=== PATIENT | female | born 2000 | race Two or more races ===

== ENCOUNTER 2020-01-17 07:16 | Emergency (ER) | payer OTHER, BC ==
[2020-01-17 07:54] LABS: ABSOLUTE BASOPHILS # (AUTO) 0.1 10^3/uL (0.0-0.2); ABSOLUTE EOSINOPHILS # (AUTO) 0.1 10^3/uL (0.0-0.6); ABSOLUTE LYMPHOCYTES (AUTO) 2.2 10^3/uL (0.5-4.7); ABSOLUTE MONOCYTES (AUTO) 1.1 10^3/uL (0.1-1.4); ABSOLUTE NEUT (AUTO) 12.5 10^3/uL (1.7-8.2); BASOPHILS % (AUTO) 0.5 % (0-2); EOSINOPHILS % (AUTO) 0.5 % (0-6); HEMATOCRIT 45.2 % (36.0-47.0); HEMOGLOBIN 15.5 g/dL (12.0-15.5); LYMPHOCYTES % (AUTO) 13.9 % (13-45); MEAN CORPUSCULAR HEMOGLOBIN 31.4 pg (27.0-33.4); MEAN CORPUSCULAR HGB CONC 34.2 g/dL (32.0-36.0); MEAN CORPUSCULAR VOLUME 92 fl (80-97); MONOCYTES % (AUTO) 6.8 % (3-13); PLATELET COUNT 231 10^3/uL (150-450); RED BLOOD COUNT 4.93 10^6/uL (3.72-5.28); RED CELL DISTRIBUTION WIDTH 14.1 % (11.5-14.0); SEGMENTED NEUTROPHILS % (AUTO) 78.3 % (42-78); TOTAL CELLS COUNTED % (AUTO) 100 %
[2020-01-17 08:09] LABS: ALBUMIN 4.3 g/dL (3.7-5.6); ALKALINE PHOSPHATASE 80 U/L (50-135); ANION GAP 9 (5-19); ASPARTATE AMINO TRANSFERASE 28 U/L (5-30); BILIRUBIN,TOTAL 1.1 mg/dL (0.2-1.3); BLOOD UREA NITROGEN 13 mg/dL (7-20); CALCIUM 9.6 mg/dL (8.4-10.2); CARBON DIOXIDE 25 mmol/L (22-30); CHLORIDE 105 mmol/L (98-107); GLUCOSE 89 mg/dL (75-110); TOTAL PROTEIN 7.2 g/dL (6.3-8.2)
[2020-01-17 08:17] LABS: APPEARANCE,URINE CLOUDY; BILIRUBIN,URINE NEGATIVE (NEGATIVE); GLUCOSE, URINE NEGATIVE (NEGATIVE); KETONES,URINE 80 mg/dL (NEGATIVE); LEUKOCYTE ESTERASE,URINE NEGATIVE (NEGATIVE); NITRITE,URINE NEGATIVE (NEGATIVE); PROTEIN,URINE 100 mg/dL (NEGATIVE); URINE SPECIFIC GRAVITY 1.031; UROBILINOGEN,URINE NEGATIVE mg/dL (<2.0)
[2020-01-17 08:28] LABS: COLOR,URINE YELLOW
--- NOTE | 2020-01-17 09:43 | ER Document Report ---
ED General - General Chief Complaint: Abdominal Pain Stated Complaint: ABDOMINAL PAIN Time Seen by Provider: 01/17/20 08:27 Mode of Arrival: Ambulatory Information source: Patient Notes: 19-year-old female presents emergency department with complaints of lower abdominal pain left lower quad pain since last night. Reports she has vomited twice. Denies fever diarrhea. She denies trauma. Denies pain with void. Denies vaginal discharge denies vaginal bleeding. Reports last menstrual was last week and ended on January 13. She reports the pain started last night was very sharp and constant. Her had to carry her to bed. She reports she took 2 ibuprofen without relief of symptoms. She reports she is G1, P0. TRAVEL OUTSIDE OF THE [place] IN LAST 30 DAYS: No - HPI Onset: Yesterday Onset/Duration: Sudden Quality of pain: Sharp Associated symptoms: Vomiting Exacerbated by: Denies Relieved by: Denies Similar symptoms previously: No Recently seen / treated by doctor: No - Related Data Allergies/Adverse Reactions: No Known Drug Allergies Allergy (Verified 01/17/20 07:28) bees Allergy (Uncoded 01/17/20 07:28) Anaphylaxis Past Medical History - General Information source: Patient Last Menstrual Period: jan 11, 2020 - Social History Smoking Status: Never Smoker Chew tobacco use (# tins/day): No Frequency of alcohol use: None Drug Abuse: None Lives with: Family Family History: None Patient has suicidal ideation: No Patient has homicidal ideation: No - Medical History Medical History: Negative Surgical Hx: Negative Review of Systems - Review of Systems Notes: Review HPI for review of systems., All other systems negative Physical Exam - Vital signs Vitals: Temp Pulse Resp BP Pulse Ox 98.2 F 62 16 127/78 H 100 01/17/20 07:19 01/17/20 07:19 01/17/20 07:19 01/17/20 07:19 01/17/20 07:19 - General General appearance: Appears well, Alert, Anxious In distress: None - HEENT Head: Normocephalic, Atraumatic Eyes: Normal Conjunctiva: Normal Extraocular movements intact: Yes Pupils: PERRL Ears: Normal External canal: Normal Tympanic membrane: Normal Nasal: Normal Mucous membranes: Normal, Moist Pharynx: Normal Neck: Normal, Supple. No: Lymphadenopathy - Respiratory Respiratory status: No respiratory distress Chest status: Nontender Breath sounds: Normal Chest palpation: Normal - Cardiovascular Rhythm: Regular Heart sounds: Normal auscultation Murmur: No - Abdominal Inspection: Normal Distension: No distension Bowel sounds: Normal Tenderness: Tender - Low abdomen left lower quad Organomegaly: No organomegaly - Back Back: Normal, Nontender - Extremities General upper extremity: Normal ROM General lower extremity: Normal ROM - Neurological Neuro grossly intact: Yes Cognition: Normal Orientation: AAOx4 [place] Coma Scale Eye Opening: Spontaneous [place]ali Coma Scale Verbal: Oriented [place] Coma Scale Motor: Obeys Commands Kali Coma Scale Total: 15 Speech: Normal - Psychological Associated symptoms: Normal affect, Normal mood - Skin Skin Temperature: Warm Skin Moisture: Dry Skin Color: Normal Course - Re-evaluation Re-evalutation: 01/17/20 12:53 Patient reports she is feeling much better. She is drinking p.o. fluids eating crackers. WBC 16 no shift, 6 specific gravity 1032 with ketones. Patient is d rinking p.o. fluids was instructed on the importance of pushing her fluids. Obstetrics Ultrasound 01/17/20 08:49 IMPRESSION: There is no intrauterine gestation identifiable at this time. Follow-up as clinically indicated. There is a large amount of free fluid. Laboratory 01/17/20 01/17/20 01/17/20 07:40 07:40 07:40 WBC 16.0 H RBC 4.93 Hgb 15.5 Hct 45.2 MCV 92 MCH 31.4 MCHC 34.2 RDW 14.1 H Plt Count 231 Lymph % (Auto) 13.9 [place] % (Auto) 6.8 Eos % (Auto) 0.5 Baso % (Auto) 0.5 Absolute Neuts (auto) 12.5 H Absolute Lymphs (auto) 2.2 Absolute Monos (auto) 1.1 Absolute Eos (auto) 0.1 Absolute Basos (auto) 0.1 Seg Neutrophils % 78.3 H Sodium 139.1 Potassium 4.0 Chloride 105 Carbon Dioxide 25 Anion Gap 9 BUN 13 Creatinine 0.60 Est GFR ( Amer) > 60 Est GFR (MDRD) Non-Af > 60 Glucose 89 Calcium 9.6 Total Bilirubin 1.1 Direct Bilirubin 0.0 Neonat Total Bilirubin Not Reportable Neonat Direct Bilirubin Not Reportable Neonat Indirect Bili Not Reportable AST 28 ALT 16 Alkaline Phosphatase 80 Total Protein 7.2 Albumin 4.3 Lipase 25.2 Beta HCG, Quant 18.03 H Total Beta HCG POSITIVE Urine Color Urine Appearance Urine pH Ur Specific Ranger Urine Protein Urine Glucose (UA) Urine Ketones Urine Blood Urine Nitrite Urine Bilirubin Urine Urobilinogen Ur Leukocyte Esterase Urine WBC (Auto) Urine RBC (Auto) Urine Bacteria (Auto) Squamous Epi Cells Auto U Non-Squamous Epis Auto Urine Mucus (Auto) Urine Ascorbic Acid Urine HCG, Qual 01/17/20 08:00 WBC RBC Hgb Hct MCV MCH MCHC RDW Plt Count Lymph % (Auto) [place] % (Auto) Eos % (Auto) Baso % (Auto) Absolute Neuts (auto) Absolute Lymphs (auto) Absolute Monos (auto) Absolute Eos (auto) Absolute Basos (auto) Seg Neutrophils % Sodium Potassium Chloride Carbon Dioxide Anion Gap BUN Creatinine Est GFR ( Amer) Est GFR (MDRD) Non-Af Glucose Calcium Total Bilirubin Direct Bilirubin Neonat Total Bilirubin Neonat Direct Bilirubin Neonat Indirect Bili AST ALT Alkaline Phosphatase Total Protein Albumin Lipase Beta HCG, Quant Total Beta HCG Urine Color YELLOW Urine Appearance CLOUDY Urine pH 5.0 Ur Specific Ranger 1.031 Urine Protein 100 H Urine Glucose (UA) NEGATIVE Urine Ketones 80 H Urine Blood NEGATIVE Urine Nitrite NEGATIVE Urine Bilirubin NEGATIVE Urine Urobilinogen NEGATIVE Ur Leukocyte Esterase NEGATIVE Urine WBC (Auto) 19 Urine RBC (Auto) 1 Urine Bacteria (Auto) TRACE Squamous Epi Cells Auto 53 U Non-Squamous Epis Auto 1 Urine Mucus (Auto) MANY Urine Ascorbic Acid NEGATIVE Urine HCG, Qual POSITIVE H 01/17/20 14:[address] Jordan regarding free fluid patient's complaint. He agrees on pelvic if negative discharge patient with follow-up. Pelvic completed. Unremarkable no BV no trichomonas. Still awaiting STD results. Patient was instructed on all labs instructed to monitor symptoms. She was instructed to follow up for hCG on Friday. She was also instructed on the importance of follow-up with a [employer]ATOR [employer], primary care provider or the health department within 1 week. She was instructed to return immediately to the emergency department for severe abdominal pain vaginal bleeding. 01/17/20 17:40 STD negative - Vital Signs Vital signs: Temp Pulse Resp BP Pulse Ox 97.9 F 62 15 102/59 L 100 01/17/20 14:22 01/17/20 14:22 01/17/20 14:22 01/17/20 14:22 01/17/20 14:22 - Laboratory Result Diagrams: 01/17/20 07:40 01/17/20 07:40 Laboratory results interpreted by me: 01/17/20 01/17/20 01/17/20 07:40 07:40 08:00 WBC 16.0 H RDW 14.1 H Absolute Neuts (auto) 12.5 H Seg Neutrophils % 78.3 H Beta HCG, Quant 18.03 H Urine Protein 100 H Urine Ketones 80 H Urine HCG, Qual POSITIVE H - Diagnostic Test Radiology reviewed: Image reviewed, Reports reviewed Discharge - Discharge Clinical Impression: Abdominal pain Qualifiers: Abdominal location: left lower quadrant Qualified Code(s): R10.32 - Left lower quadrant pain Qualifiers: Weeks of gestation: less than 8 weeks Qualified Code(s): Z3A.01 - Less than 8 weeks gestation of Condition: Stable Disposition: HOME, SELF-CARE Instructions: Abdominal Pain ([facility]), Acetaminophen, Ectopic Precaution ([facility]), Ob-Sanitary Chemist Doctors, [facility], ([facility]) Additional Instructions: *You have been evaluated for abdominal pain, *Your ultrasound was inconclusive. No was visualized. Your hCG level was 18.06. You will need to repeat your hCG in 2 days on Friday, January 19. You may call the [facility] nurse at [phone] for your results 2 hours after the test. *Take Tylenol as indicated *Follow up with a primary care provider /[facility]/or the health department within 1 week for recheck *Return to ED for worsening condition, changes, needs, severe abdominal pain, vaginal bleeding, concerns Forms: Follow-Up Laboratory Testing
--- NOTE | 2020-01-17 12:32 | RADIOLOGY REPORT (SQ) ---
EXAM DESCRIPTION: U/S OB TRANSVAGINAL W/O DOP COMPLETED DATE/TIME: 01/17/2020 11:42 am REASON FOR STUDY: abd pain, +preg, ? ovarian cyst COMPARISON: None. TECHNIQUE: Transvaginal static and realtime grayscale images acquired of the pelvis. Additional pooja cted spectral and color Doppler images recorded. All images stored on PACs. [facility] CLINICAL DATES: LMP 07/23/2020 1 weeks 2 days LIMITATIONS: None. FINDINGS: There is no identifiable gestational sac or pole within the uterus. UTERUS: No masses. No anomalies. CERVICAL LENGTH: 3.7 cm. Closed. RIGHT ADNEXA: Normal ovary with normal vascular flow. 3 x 1.7 x 1.9 cm. Multiple follicles No adnexal free fluid. No adnexal masses. LEFT ADNEXA: Normal ovary with normal vascular flow. 4.1 x 3.4 x 2.8 cm. There is a 3.5 x 2.5 x 2.3 cm cyst. No adnexal free fluid. No adnexal masses. FREE FLUID: There is considerable free fluid. OTHER: No other significant finding. IMPRESSION: There is no intrauterine gestation identifiable at this time. Follow-up as clinically i ndicated. There is a large amount of free fluid. TECHNICAL DOCUMENTATION: JOB ID: [id number] [employer]- All Rights Reserved rev-04/17 Reading location - IP/workstation name: [email or web address]
[2020-01-17 13:16] LABS: T.VAGINALIS (WET MOUNT) NO TRICHOMONAS SEEN; WBCS (WET MOUNT) RARE WBCS SEEN; YEAST (WET MOUNT) NO YEAST SEEN
[2020-01-17 14:24] VITALS: BP 102/59
[2020-01-17 14:48] LABS: CHLAM PCR NOT DETECTED (NOT DETECT)
== END 2020-01-17 14:24 | disposition home or self-care (01) ==
LOC: ER 07:16
DX: O26.891 Other specified pregnancy related conditions, first trimester (principal); R10.32 Left lower quadrant pain; R10.814 Left lower quadrant abdominal tenderness; R18.8 Other ascites; O21.9 Vomiting of pregnancy, unspecified; Z3A.01 Less than 8 weeks gestation of pregnancy; Z87.892 Personal history of anaphylaxis; Z91.030 Bee allergy status
CPT/HCPCS: 36415; 76817; 80053; 81001; 81025; 83690; 84702; 85025; 87070; 87205; 87210; 87491; 87591; 99284

== ENCOUNTER 2020-04-30 10:14 | Emergency (ER) | payer BC, OTHER ==
[2020-04-30 11:04] LABS: ABSOLUTE EOSINOPHILS # (AUTO) 0.1 10^3/uL (0.0-0.6); ABSOLUTE LYMPHOCYTES (AUTO) 1.8 10^3/uL (0.5-4.7); ABSOLUTE MONOCYTES (AUTO) 0.7 10^3/uL (0.1-1.4); ABSOLUTE NEUT (AUTO) 7.1 10^3/uL (1.7-8.2); BASOPHILS % (AUTO) 0.2 % (0-2); EOSINOPHILS % (AUTO) 0.6 % (0-6); HEMATOCRIT 38.8 % (36.0-47.0); HEMOGLOBIN 13.6 g/dL (12.0-15.5); LYMPHOCYTES % (AUTO) 18.8 % (13-45); MEAN CORPUSCULAR HEMOGLOBIN 31.9 pg (27.0-33.4); MEAN CORPUSCULAR VOLUME 91 fl (80-97); MONOCYTES % (AUTO) 6.8 % (3-13); PLATELET COUNT 198 10^3/uL (150-450); RED BLOOD COUNT 4.27 10^6/uL (3.72-5.28); RED CELL DISTRIBUTION WIDTH 12.7 % (11.5-14.0); SEGMENTED NEUTROPHILS % (AUTO) 73.6 % (42-78); TOTAL CELLS COUNTED % (AUTO) 100 %; WHITE BLOOD COUNT 9.6 10^3/uL (4.0-10.5)
--- NOTE | 2020-04-30 11:05 | ER Document Report ---
ED General - General Chief Complaint: Overdose Stated Complaint: POSSIBLE OVERDOSE Time Seen by Provider: 04/30/20 10:19 Primary Care Provider: LYNNETTE PEREZ MD [Primary Care Provider] - Follow up as needed Information source: Patient Notes: HPI: 19-year-old female with past medical history of depression who states that around 9 AM she took an unknown amount of ibuprofen and Benadryl. Patient states she has a history of depression with institutionalization around 4 years ago. She denies any auditory visual loose [place]. She denies any acute events causing this reaction. She is 16 weeks with her second . Last was terminated with . She denies any abdominal pain or vaginal bleeding. ROS: See HPI All other review of systems reviewed and otherwise negative Reviewed vital signs and nursing note as charted by RN. PHYSICAL EXAM: CONSTITUTIONAL: Alert and oriented and responds appropriately to questions. Well-appearing; well-nourished HEAD: Normocephalic; atraumatic EYES: PERRL; nystagmus, sclerae non-icteric ENT: Normal nose; no rhinorrhea; moist mucous membranes; pharynx without lesions noted NECK: Supple without meningismus; non-tender; no cervical lymphadenopathy, no masses CARD: Regular rate and rhythm; no murmurs; symmetric distal pulses RESP: Normal chest excursion without splinting or tachypnea; breath sounds clear and equal bilaterally ABD/GI: Normal bowel sounds; non-distended with no palpable fundus appreciated with a slightly elevated BMI; soft, non-tender; no palpable organomegaly or masses BACK: The back appears normal and is non-tender to palpation EXT: Normal ROM in all joints; non-tender to palpation; no edema SKIN: No acute lesions noted NEURO: CN 2-12 intact; 5/5 bilateral upper and lower extremity strength with sensation intact to light touch PSYCH: The patient's mood and manner are appropriate. Grooming and personal hygiene are appropriate. TRAVEL OUTSIDE OF THE [place] IN LAST 30 DAYS: No - Related Data Allergies/Adverse Reactions: No Known Drug Allergies Allergy (Verified 04/30/20 10:21) bees Allergy (Uncoded 04/30/20 10:21) Anaphylaxis Home Medications: vitamins. Claritin Past Medical History - Social History Smoking Status: Never Smoker Chew tobacco use (# tins/day): No Frequency of alcohol use: Social Drug Abuse: Marijuana Family History: None Patient has homicidal ideation: No Physical Exam - Vital signs Vitals: Temp Resp BP 98.7 F 18 106/67 04/30/20 10:20 04/30/20 10:20 04/30/20 10:20 Course - Re-evaluation Re-evalutation: 04/30/20 11:04 Given the above history and physical we did order the basic psychiatric labo ratory profile as well as ordered heart tones. Patient does have good heart tones. Patient's affect is slightly flat but otherwise unremarkable. I do anticipate the need for institutionalization. I have also ordered a 1 PM Tylenol level although the patient denies any Tylenol usage. Patient has no obvious somnolence from the Benadryl. EKG shows a heart rate of 83, normal sinus rhythm, left axis deviation, no obvious ST elevation or depression. Incomplete right bundle branch block. 04/30/20 11:45 Labs as recorded. Initial Tylenol as recorded. It appears now speaking with senait baron but the patient found some undesirable things on her father child's phone. 04/30/20 12:10 Labs as recorded. Patient has no urinary symptoms so urine culture will be sent. She has not had any fevers or vomiting. I will hold on treatment at this time. - Vital Signs Vital signs: Temp Pulse Resp BP Pulse Ox 97.8 F 18 106/67 04/30/20 10:21 04/30/20 10:20 04/30/20 10:20 - Laboratory Result Diagrams: 04/30/20 10:49 04/30/20 10:49 Laboratory results interpreted by me: 04/30/20 04/30/20 10:49 10:49 Sodium 134.9 L Urine Ketones 20 H Urine Blood SMALL H Ur Leukocyte Esterase TRACE H Urine HCG, Qual POSITIVE H Salicylates < 1.0 L Acetaminophen < 10 L Discharge - Discharge Clinical Impression: Suicide attempt Overdose Qualifiers: Encounter type: initial encounter Injury intent: intentional self-harm Qualified Code(s): T50.902A - Poisoning by unspecified drugs, medicaments and biological substances, intentional self-harm, initial encounter Condition: Serious Disposition: PSYCH HOSP/UNIT Referrals: LYNNETTE PEREZ MD [Primary Care Provider] - Follow up as needed
[2020-04-30 11:15] LABS: APPEARANCE,URINE SLIGHTLY-CLOUDY; BILIRUBIN,URINE NEGATIVE (NEGATIVE); COLOR,URINE YELLOW; GLUCOSE, URINE NEGATIVE (NEGATIVE); KETONES,URINE 20 mg/dL (NEGATIVE); LEUKOCYTE ESTERASE,URINE TRACE (NEGATIVE); NITRITE,URINE NEGATIVE (NEGATIVE); PROTEIN,URINE NEGATIVE (NEGATIVE); URINE SPECIFIC GRAVITY 1.006; UROBILINOGEN,URINE NEGATIVE mg/dL (<2.0)
[2020-04-30 11:18] LABS: ACETAMINOPHEN < 10 ug/mL (10-30); ALBUMIN 3.7 g/dL (3.7-5.6); ALCOHOL < 10 mg/dL (NONE DETECTED); ALKALINE PHOSPHATASE 51 U/L (50-135); ANION GAP 6 (5-19); ASPARTATE AMINO TRANSFERASE 21 U/L (5-30); BILIRUBIN,TOTAL 0.5 mg/dL (0.2-1.3); BLOOD UREA NITROGEN 7 mg/dL (7-20); CALCIUM 9.2 mg/dL (8.4-10.2); CARBON DIOXIDE 24 mmol/L (22-30); CHLORIDE 105 mmol/L (98-107); GLUCOSE 84 mg/dL (75-110); POTASSIUM 3.7 mmol/L (3.6-5.0); SALICYLATE < 1.0 mg/dL (2.0-20.0); TOTAL PROTEIN 6.7 g/dL (6.3-8.2)
[2020-04-30 11:27] LABS: URINE AMPHETAMINES SCREEN NEGATIVE; URINE BARBITURATES SCREEN NEGATIVE; URINE BENZODIAZEPINES SCREEN NEGATIVE; URINE COCAINE SCREEN NEGATIVE; URINE METHADONE SCREEN NEGATIVE; URINE PHENCYCLIDINE SCREEN NEGATIVE
[2020-04-30 11:29] LABS: URINE MARIJUANA (THC) SCREEN UNCONFIRMED POSITIVE
--- NOTE | 2020-04-30 12:24 | EKG REPORT ---
SEVERITY:- BORDERLINE ECG - SINUS RHYTHM LEFT AXIS DEVIATION INCOMPLETE RBBB : Confirmed by: Kaiser Rai MD 30-Apr-2020 12:23:54
--- NOTE | 2020-04-30 17:16 | PSYCHOLOGICAL NOTE ---
Psych Note - Psych Note Date seen by psych provider: 04/30/20 Time seen by psych provider: 11:00 Psych Note: Reason For Consult:Intentional overdose Consent Permissions:Father and Step Mother Patient reports that she took ibuprofen in Benadryl this morning because "it was just too much.... I am going through a lot.... I am having difficulties with my mood since being ...issues with the father of my baby." Patient refuses to give clarification or further details and redirects conversation to her not wanting to go inpatient. Patient becomes tearful and reports that going inpatient psychiatric treatment does her more harm than good. She request to go to outpatient services. She has no response on why she has not followed through with outpatient services prior to. Clinician and attending nurse spoke with patient's father and stepmother separate from patient's room. They disclosed history of patient's impulsive and defiant behaviors. They disclose the patient has been inpatient psychiatric treatment approximately 5 times with diagnosis of ODD, mood disorder, clinical depression, and anxiety. They disclose that she had been doing well until today's events. They disclose that since being she no longer sneaks out, goes partying and gets into trouble. They confirm she does have a history of engaging in self-harm (cutting). They disclose that last night the patient became upset when looking through the phone of the father of her unborn child. Reportedly she found things that made her very upset. They continue to disclose that her emotions would swing from angry to happy to upset, then this morning intentionally overdosing. They does disclose concern that the patient refuses to engage in mental health services as she feels she does not have a problem. Clinician spoke with biological mother. She reports patient has been inpatient psychiatric treatment both in [place] and [place]. She also was in a residential [facility]ci for longer term treatment in [place]. She reports that she did very well in the fci however upon returning home she again became noncompliant with her medication and refused to engage in services. Patient is alert and orientated to person, place, time and circumstance. Mood and affect are blunted however patient does become tearful at times. Patient presents after intentional overdose. Patient denies homicidal ideation. Delusions are absent and behaviors congruent with an intact reality based presentation i.e. organized and linear thought process. Thought content is guarded. Eye contact is poor. Conversational speech is quiet but easily understood. Intellectual abilities appear to be within the average range. Attention and concentration are fair. Insight, judgment, impulse control are poor. Impression\\plan: Patient is recommended for IVC; paperwork is signed, faxed to corn husker machine operator and placed in patient's chart. There is significant concern to the patient has mood disorder that is currently untreated. Patient is currently . Patient is guarded and well minimally engages with evaluation demonstrates little to no insight into her mental health or impulse control allowing her to refrain from self-harm. Dr. Banks was consulted to care deeptikennedy abdullahi of this patient; attending physicians in agreement with recommendations and disposition.
[2020-04-30] MEDS ORDERED: PRENATAL VITAMIN W DHA CAPSULE PO SCH (18:15)
[2020-04-30] MEDS ORDERED: PRENATAL VITAMIN W DHA CAPSULE PO ONE (18:38)
[2020-04-30 21:15] VITALS: BP 116/68
== END 2020-04-30 21:50 ==
LOC: ER 10:14
DX: T50.902A Poisoning by unspecified drugs, medicaments and biological substances, intentional self-harm, initial encounter (principal); F32.9 Major depressive disorder, single episode, unspecified; Z79.899 Other long term (current) drug therapy
CPT/HCPCS: 93005; 99285; 36415; 87086; 80307 ×4; 85025; 81025; 80053; 81001; 93010; J3490; 87088